=== PATIENT | female | born 1970 | race Caucasian/White ===

== ENCOUNTER 2016-08-10 09:51 | Emergency (ER) | payer OTHER ==
[~2016-08-10] VITALS: Ht 165.1 cm; Wt 58.1 kg
[2016-08-10 10:01] VITALS: BP 124/84
--- NOTE | 2016-08-10 10:09 | NUR ---
Patient ambulated to bed 04.
--- NOTE | 2016-08-10 10:12 | NUR ---
46F BIB SELF C/O ACHING ABDOMINAL PAIN X 4 QUADRANTS, RADIATES TO CHEST, 8/10 X YESTERDAY; ABDOMEN SOFT, NON-TENDER, ACTIVE BOWEL SOUNDS X 4 QUADRANTS; PT C/O VOMITING X 2 EPISODES TODAY; PT STATES HAD DIARRHEA YESTERDAY, BUT DENIES DIARRHEA AT THIS TIME; A&OX4, PERRL, BL LUNG SOUNDS CLEAR, RR EVEN/UNLABORED, SKIN IS WARM/DRY/INTACT AT THIS TIME; PT RESTING IN BED W/ HOB ELEVATED AND IN LOWEST POSITION; POSITIONED FOR COMFORT; ER MD MADE AWARE OF STATUS. WILL CONTINUE TO MONITOR.
--- NOTE | 2016-08-10 10:32 | NUR ---
Dr. Stephens evaluating patient at bedside.
[2016-08-10] MEDS ORDERED: ONDANSETRON 4 MG ODT PO ONE (10:35)
[2016-08-10] MEDS ORDERED: KETOROLAC 60 MG/2 ML VIAL IM ONE (10:35)
--- NOTE | 2016-08-10 11:18 | NUR ---
Patient discharged with v/s stable. Written and verbal after care instructions given and explained. Patient alert, oriented and verbalized understanding of instructions. Ambulatory with steady gait. All questions addressed prior to discharge. ID band removed. Patient advised to follow up with PMD. Rx of ZOFRAN 8MG TAB, MOTRIN 600MG TAB & PRILOSEC 40MG TAB given. Patient educated on indication of medication including possible reaction and side effects. Opportunity to ask questions provided and answered.
[2016-08-10 11:24] VITALS: BP 116/75
== END 2016-08-10 11:18 | disposition home or self-care (01) ==
LOC: MED 09:51
DX: R10.30 Lower abdominal pain, unspecified (principal); R19.7 Diarrhea, unspecified; R11.2 Nausea with vomiting, unspecified
CPT/HCPCS: 81002; 81025; 96372; 99283; J1885; S0119